=== PATIENT | female | born 1950 | race Caucasian/White ===

== ENCOUNTER → 2021-03-16 | Outpatient (CLI) | payer MEDICARE ==
[~2021-03-16] MED LIST: CLONAZEPAM0.5 MG PO; FLECAINIDE ACET50 MG PO; GABAPENTIN100 MG PO; MELOXICAM15 MG PO; METOPROLOL SUCC25 MG PO; POTASSIUM CHLO10 ME1 PO; PROMETHAZINE HC25 M1 PO; TIZANIDINE HCL4 MG PO
== END ==
LOC: HEART CORB 09:30
DX: I48.91 Unspecified atrial fibrillation (principal); I08.3 Combined rheumatic disorders of mitral, aortic and tricuspid valves
CPT/HCPCS: 93306